=== PATIENT | male | born 1970 | race Caucasian/White ===

== ENCOUNTER 2018-01-09 17:32 | Emergency (ER) | payer OTHER ==
[2018-01-09] MEDS ORDERED: NS 1,000 ML IV ONE (18:28)
--- NOTE | 2018-01-09 18:31 | EDPHY ---
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 Onset of epigastric pain 4 days ago, similar to prior episodes of pancreatitis. He stopped eating for several days. Yesterday he ate some Jell-O and applesauce, which aggravated the pain. The pain is mild to moderate and associated with nausea. Also associated with loose stools. No fever. REVIEW OF SYSTEMS: complete 10 point ROS negative except at noted in the HPI - Personal History Current Tetanus Diphtheria and Acellular Pertussis (TDAP): Yes - Medical/Surgical History Hx Asthma: No Hx Chronic Respiratory Disease: No Hx Diabetes: No Hx Cardiac Disease: No Hx Renal Disease: No Hx Cirrhosis: No Hx Alcoholism: No Hx HIV/AIDS: No Hx Splenectomy or Spleen Trauma: No Other PMH: Idiopathic pancreatitis, hernia surgery (2013), cholecystectomy - Social History Smoking Status: Former smoker Alcohol Use: None Drug Use: None Additional Social History: - Physical Exam Exam: General Appearance: Alert, pleasant Eyes: Pupils equal and round, no conjunctival pallor or injection ENT, Mouth: Mucous membranes moist Neck: Normal inspection Respiratory: Lungs are clear to auscultation Cardiovascular: Regular rate and rhythm Gastrointestinal: Abdomen is soft, epigastric tenderness Neurological: A&O, nonfocal exam Skin: Warm and dry, no rash Extremities: Normal inspection Psychiatric: Mood and affect normal Constitutional: Initial Vital Signs Temperature (C) 37.2 C 01/09/18 17:35 Heart Rate 103 H 01/09/18 17:35 Respiratory Rate 16 01/09/18 17:35 Blood Pressure 111/92 H 01/09/18 17:35 O2 Sat (%) 95 01/09/18 17:35 O2 Delivery Mode Room Air Allergies/Adverse Reactions: No Known Allergies Allergy (Verified 01/09/18 17:35) Home Medications: Medication Instructions Recorded Ondansetron Odt [Zofran Odt 4 mg 4 mg PO Q4 PRN #10 tab 01/09/18 (*)] oxyCODONE/APAP 5/325 [Percocet 1 - 2 tab PO Q4 PRN #20 tab 01/09/18 5/325 (*)] Medical Decision Making ED Course/Re-evaluation: This patient presents with likely recurrent pancreatitis. IV normal saline 1 L given for dehydration. Patient declines nausea and pain medications. Results consistent with acute pancreatitis and discussed with the patient. After a prolonged discussion, the patient would like to go home. He clearly understands the risks and benefits of this decision. He will stay on clear fluids and narcotic pain medication. He will return for worsening symptoms or any concerns. Differential Diagnosis: Differential diagnosis includes though it is not limited to appendicitis, cholecystitis, diverticulitis, pyelonephritis, bowel perforation, small bowel obstruction. - Data Points Laboratory Results: Laboratory Results 01/09/18 18:11 01/09/18 18:11 Medications Given: Discontinued Medications Sodium Chloride (Ns) 1,000 mls @ 0 mls/hr IV ONCE ONE; Wide Open PRN Reason: Protocol Stop: 01/09/18 18:29 Last Admin: 01/09/18 18:32 Dose: 1,000 mls Ondansetron HCl (Zofran Odt 4 Mg Prepack#2) 1 btl TAKEHOME EDNOW ONE Stop: 01/09/18 21:14 Last Admin: 01/09/18 21:25 Dose: 1 btl Oxycodone/Acetaminophen (Percocet 5/325mg Prepack#4) 1 btl TAKEHOME EDNOW ONE Stop: 01/09/18 21:14 Last Admin: 01/09/18 21:25 Dose: 1 btl Departure - Departure Disposition: Home, Routine, Self-Care Clinical Impression: Acute pancreatitis Qualifiers: Pancreatitis type: idiopathic Acute pancreatitis complication: unspecified Qualified Code(s): K85.00 - Idiopathic acute pancreatitis without necrosis or infection Condition: Good Instructions: Oxycodone/Acetaminophen (By mouth), Ondansetron (By mouth), Pancreatitis (ED) Additional Instructions: Stay on clear liquids until abdominal pain resolves. Percocet 1-2 tablets every 6 hours as needed for pain. Zofran 1 tablet under the tongue every 6 hours as needed for nausea. Return for worsening symptoms or any concerns. Referrals: Eric Duong MD [Primary Care Provider] - 1-2 days without fail Prescriptions: Ondansetron Odt [Zofran Odt 4 mg (*)] 4 mg PO Q4 PRN #10 tab PRN Reason: Nausea oxyCODONE/APAP 5/325 [Percocet 5/325 (*)] 1 - 2 tab PO Q4 PRN #20 tab PRN Reason: pain
[2018-01-09 18:35] LABS: PLATELET COUNT 266 10^3/uL (150-400)
[2018-01-09] MEDS ORDERED: OXYCODONE/APAP 5/325MG PREPACK#4 BTL TAKEHOME ONE (21:13)
[2018-01-09] MEDS ORDERED: ONDANSETRON 4MG PREPACK#2 BTL TAKEHOME ONE (21:13)
[2018-01-09 21:33] VITALS: BP 125/77
== END 2018-01-09 21:31 | disposition home or self-care (01) ==
DX: K85.00 Idiopathic acute pancreatitis without necrosis or infection (principal); E86.9 Volume depletion, unspecified; Z87.891 Personal history of nicotine dependence
CPT/HCPCS: G0480

== ENCOUNTER → 2018-02-27 | Outpatient (CLI) | payer OTHER ==
[~2018-02-27] MED LIST: GADOBUTROL 10 ML VIAL IVP ONE
== END ==
LOC: FIMAGING 06:48
PROVIDERS: ATTEND Physician Assistant
DX: K86.9 Disease of pancreas, unspecified (principal); Z90.49 Acquired absence of other specified parts of digestive tract
CPT/HCPCS: A9585